=== PATIENT | female | born 1990 | race African-American/Black ===

== ENCOUNTER 2024-03-15 16:11 | Emergency (ER) | payer OTHER ==
[~2024-03-15] VITALS: Ht 162.6 cm; Wt 97.5 kg
[2024-03-15 16:34] VITALS: TEMP 97.9
[2024-03-15] MEDS ORDERED: diphenhydrAMINE HCL 50 MG/ML VIAL ONE (16:53)
[2024-03-15] MEDS ORDERED: METOCLOPRAMIDE HCL 10 MG/2 ML VIAL ONE (16:54)
[2024-03-15] MEDS ORDERED: ACETAMINOPHEN ES 500 MG TABLET ONE (16:54)
[2024-03-15] MEDS: ACETAMINOPHEN ES 500 MG TABLET PO ONE (17:10)
[2024-03-15] MEDS: IV NS 0.9% 1,000 ML BAG IV ONE (17:10)
[2024-03-15] MEDS: diphenhydrAMINE HCL 50 MG/ML VIAL IV ONE (17:11)
[2024-03-15] MEDS: METOCLOPRAMIDE HCL 10 MG/2 ML VIAL IV ONE (17:15)
[2024-03-15 19:11] VITALS: BP 145/95; O2SAT 99
== END 2024-03-15 19:10 | disposition home or self-care (01) ==
LOC: ER 16:53
DX: G43.909 Migraine, unspecified, not intractable, without status migrainosus (principal); I10 Essential (primary) hypertension; R11.0 Nausea; R20.2 Paresthesia of skin
CPT/HCPCS: 99284; 96374; 96361; 96375; J1200; J2765